=== PATIENT | female | born 1995 | race Hispanic/Latino ===

== ENCOUNTER 2022-09-09 00:34 | Emergency (ER) | payer OTHER ==
[~2022-09-09] VITALS: Ht 149.9 cm; Wt 56.7 kg
[2022-09-09] MEDS ORDERED: AMOX TR-K CLV1 EAC2 PO (01:49)
== END 2022-09-09 02:07 | disposition home or self-care (01) ==
LOC: ER 00:40
DX: R05.9 Cough, unspecified (principal); J02.0 Streptococcal pharyngitis; Z20.822 Contact with and (suspected) exposure to COVID-19
CPT/HCPCS: 71046; 83518; 87070; 99283; U0002